=== PATIENT | male | born 1980 | race Caucasian/White ===

== ENCOUNTER 2016-12-27 16:12 | Emergency (ER) | payer SELFPAY ==
[2016-12-27 16:12] VITALS: BMI 34.3
[2016-12-27 16:17] VITALS: TEMP 98.3
[2016-12-27] MEDS ORDERED: Sodium Chloride 0.9% 1,000 ML IV STA (17:01)
[2016-12-27] MEDS ORDERED: DiphenhydrAMINE 50 mg/ml Inj IVP STA (17:01)
--- NOTE | 2016-12-27 17:25 | ED PDOC ---
HPI: General Adult Time Seen by Provider: 12/27/16 16:18 Chief Complaint (Nursing): Dizziness/Lightheaded History Per: Patient Additional Complaint(s): Pt. when he woke up this morning he felt very dizzy. Pt. describes dizziness as the room spinning. States symptoms have improved since the onset but is still present. Also states that when he closes his eyes the dizziness becomes worse. Denies pain, headache, head injury, LOC, N/V, fever. Also reports feeling burning in his epigastric area. Denies diarrhea, chest pain, SOB, palpitations. Past Medical History Reviewed: Historical Data, Nursing Documentation, Vital Signs Vital Signs: Last Vital Signs Temp 98.3 F 12/27/16 16:14 Pulse 75 12/27/16 17:28 Resp 20 12/27/16 16:14 BP 145/56 L 12/27/16 16:14 Pulse Ox 98 12/27/16 17:28 - Family History Family History: States: Unknown Family Hx - Home Medications Home Medications: Ambulatory Orders Medication Instructions Recorded Naproxen [Naprosyn] 500 mg PO Q12H #20 tab 03/29/16 Meclizine [Meclizine*] 1 - 2 tab PO Q6 PRN #30 tab 12/27/16 - Allergies Allergies/Adverse Reactions: Allergies Allergy/AdvReac Type Severity Reaction Status Date / Time No Known Allergies Allergy Verified 12/27/16 17:10 Review of Systems ROS Statement: Except As Marked, All Systems Reviewed And Found Negative Neurological: Positive for: Dizziness Physical Exam - Reviewed Nursing Documentation Reviewed: Yes Vital Signs Reviewed: Yes - Physical Exam Appears: Positive for: Well, Non-toxic, No Acute Distress Head Exam: Positive for: ATRAUMATIC, NORMAL INSPECTION, NORMOCEPHALIC Skin: Positive for: Normal Color, Warm. Negative for: Rash Eye Exam: Positive for: Normal appearance, EOMI, PERRL. Negative for: Nystagmus ENT: Positive for: Normal ENT Inspection Neck: Positive for: Normal, Painless ROM Cardiovascular/Chest: Positive for: Regular Rate, Rhythm Respiratory: Positive for: CNT, Normal Breath Sounds Gastrointestinal/Abdominal: Positive for: Normal Exam, Bowel Sounds, Soft. Negative for: Tenderness Back: Positive for: Normal Inspection Extremity: Positive for: Normal ROM Neurologic/Psych: Positive for: Alert, Oriented, Gait (steady, unassisted). Negative for: Aphasia, Facial Droop - Laboratory Results Result Diagrams: 12/27/16 17:27 12/27/16 17:27 - ECG ECG: Positive for: Interpreted By Me ECG Rhythm: Positive for: Sinus Rhythm. Negative for: ST/T Changes Rate: 75 O2 Sat by Pulse Oximetry: 98 - Progress ED Course And Treament: Labs ordered. CT head w/o contrast ordered. IV NS bolus x 1 given. Benadryl 50mg IV, pepcid 20mg IV given. 1905 CT head w/o contrast: negative. On re-evaluation, pt. reports good relief of dizziness and abdominal pain. Repeat neuro exam is non-focal. Abd remains soft and non-tender to deep palpation. Gait steady unassisted. Disposition - Clinical Impression Clinical Impression: Dizziness - Patient ED Disposition Is Patient to be Admitted: No - Disposition Referrals: [facility] [Outside] [facility] [Outside] Disposition: Routine/Home Disposition Time: 19:07 Condition: IMPROVED Prescriptions: Meclizine [Meclizine*] 1 - 2 tab PO Q6 PRN #30 tab PRN Reason: Dizziness Instructions: Benign Paroxysmal Positional Vertigo (ED) Forms: [facility] (Urdu)
[2016-12-27 17:38] LABS: BASO # 0.1 K/uL (0.0-0.2); BASO % 0.9 % (0.0-2.0); EOS # 0.3 K/uL (0.0-0.7); EOS % 2.5 % (0.0-4.0); HEMOGLOBIN 14.8 g/dL (12.0-18.0); LYMPH # 3.8 K/uL (1.0-4.3); LYMPH % 28.5 % (20.0-40.0); MEAN CELL VOLUME 88.4 fl (80.0-94.0); MEAN CORPUSCULAR HEMOGLOBIN 29.2 pg (27.0-31.0); MEAN CORPUSCULAR HGB CONC 33.1 g/dL (33.0-37.0); MEAN PLATELET VOLUME 9.5 fl (7.2-11.7); MONO # 1.2 K/uL (0.0-0.8); NEUT # 7.9 K/uL (1.8-7.0); NEUT % 59.1 % (50.0-75.0); NRBC % 0.1 % (0.0-0.0); RBC 5.05 Mil/uL (4.40-5.90); RED CELL DISTRIBUTION WIDTH 13.2 % (11.5-14.5); WHITE BLOOD COUNT 13.4 K/uL (4.8-10.8)
[2016-12-27 17:58] LABS: ALB/GLOB RATIO 1.4 (1.0-2.1); ALBUMIN 4.6 g/dL (3.5-5.0); ALT/SGPT 59 U/L (21-72); AST/SGOT 34 U/L (17-59); BLOOD UREA NITROGEN 11 mg/dl (9-20); GFR AFRICAN-AMERICAN > 60; GFR NON-AFRICAN AMERICAN > 60; LIPASE 62 U/L (23-300)
[2016-12-27 19:43] VITALS: BP 139/60; PULSE 72; RESP 18; O2SAT 100
--- NOTE | 2016-12-27 19:58 | CT ---
PROCEDURE: CT HEAD WITHOUT CONTRAST. HISTORY: dizziness COMPARISON: None available. TECHNIQUE: Axial computed tomography images were obtained through the head/brain without intravenous contrast. Radiation dose: Total exam DLP = 1170 mGy-cm. This CT exam was performed using one or more of the following dose reduction techniques: Automated exposure control, adjustment of the mA and/or kV according to patient size, and/or use of iterative reconstruction technique. FINDINGS: HEMORRHAGE: No intracranial hemorrhage. BRAIN: No mass effect or edema. No atrophy or chronic microvascular ischemic changes. VENTRICLES: Unremarkable. No hydrocephalus. CALVARIUM: Unremarkable. PARANASAL SINUSES: Unremarkable as visualized. No significant inflammatory changes. MASTOID AIR CELLS: Unremarkable as visualized. No inflammatory changes. OTHER FINDINGS: None. IMPRESSION: Normal CT of the Head.
--- NOTE | 2016-12-28 09:44 | CARD ---
APPROVED REPORT EKG Measurement Heart [id number] <Conclusion> Normal sinus rhythm Normal ECG
== END 2016-12-27 19:42 | disposition home or self-care (01) ==
LOC: H.ER 16:12
DX: R42 Dizziness and giddiness (principal)

== ENCOUNTER 2017-12-13 13:18 | Emergency (ER) | payer SELFPAY ==
[2017-12-13 13:34] VITALS: RESP 16; TEMP 98.4; O2SAT 98
[2017-12-13 13:35] VITALS: BMI 35.3
--- NOTE | 2017-12-13 14:53 | ED PDOC ---
HPI: General Adult Time Seen by Provider: 12/13/17 13:39 Chief Complaint (Nursing): Chest Pain Chief Complaint (Provider): Rib Pain History Per: Patient History/Exam Limitations: no limitations Onset/Duration Of Symptoms: Days Current Symptoms Are (Timing): Still Present Additional Complaint(s): Tereso Gallegos is a 37 year old male with no past medical history who is presenting to the ED for evaluation of left lower rib pain onset 3 days ago. Patient reports that the pain is worsened with movement and sitting upright. He denies taking any medications prior to arrival and denies any chest pain or shortness of breath. Patient reports no trauma or fall and offers no other medical complaints. PMD: none provided Past Medical History Reviewed: Historical Data, Nursing Documentation, Vital Signs Vital Signs: Last Vital Signs Temp 98.4 F 12/13/17 21:18 Pulse 73 12/13/17 21:18 Resp 16 12/13/17 21:18 BP 146/90 12/13/17 21:18 Pulse Ox 98 12/13/17 21:18 - Medical History PMH: No Chronic Diseases - Surgical History Surgical History: No Surg Hx - Family History Family History: States: Unknown Family Hx - Social History Current smoker - smoking cessation education provided: No Alcohol: Social Drugs: Denies - Home Medications Home Medications: Ambulatory Orders Medication Instructions Recorded Naproxen [Naprosyn] 500 mg PO Q12H #20 tab 03/29/16 Meclizine [Meclizine*] 1 - 2 tab PO Q6 PRN #30 tab 12/27/16 Naproxen [Naprosyn] 500 mg PO BID PRN #15 tablet 12/13/17 - Allergies Allergies/Adverse Reactions: Allergies Allergy/AdvReac Type Severity Reaction Status Date / Time No Known Allergies Allergy Verified 12/13/17 13:46 Review of Systems ROS Statement: Except As Marked, All Systems Reviewed And Found Negative Cardiovascular: Negative for: Chest Pain Respiratory: Negative for: Shortness of Breath Musculoskeletal: Positive for: Other (left lower rib pain) Physical Exam - Reviewed Nursing Documentation Reviewed: Yes Vital Signs Reviewed: Yes - Physical Exam Appears: Positive for: Non-toxic, In Acute Distress (mild painful) Head Exam: Positive for: ATRAUMATIC, NORMAL INSPECTION, NORMOCEPHALIC Skin: Positive for: Normal Color, Warm, DRY Eye Exam: Positive for: EOMI, Normal appearance, PERRL ENT: Positive for: Normal ENT Inspection Neck: Positive for: Normal, Painless ROM Cardiovascular/Chest: Positive for: Regular Rate, Rhythm. Negative for: Murmur Respiratory: Positive for: Normal Breath Sounds. Negative for: Respiratory Distress Gastrointestinal/Abdominal: Positive for: Normal Exam, Soft, Other (left lower anterior rib tenderness, no crepitus, no point tenderness, no erythema no edema ). Negative for: Tenderness, Distended, Guarding, Rebound Back: Positive for: Normal Inspection. Negative for: L CVA Tenderness, R CVA Tenderness, Vertebral Tenderness Extremity: Positive for: Normal ROM. Negative for: Deformity, Swelling Neurologic/Psych: Positive for: Alert, Oriented. Negative for: Motor/Sensory Deficits - Laboratory Results Result Diagrams: 12/13/17 17:07 12/13/17 17:07 - ECG O2 Sat by Pulse Oximetry: 98 (RA) Pulse Ox Interpretation: Normal Medical Decision Making Medical Decision Making: Time: 14:45 Impression: Rib Pain Plan: --X-Ray Left Ribs and Chest --Motrin Tab 600 mg PO Scribe Attestation: Documented by Misti Kiser, acting as a scribe for Arpita Canada MD. Provider Scribe Attestation: All medical record entries made by the Scribe were at my direction and personally dictated by me. I have reviewed the chart and agree that the record accurately reflects my personal performance of the history, physical exam, medical decision making, and the department course for this patient. I have also personally directed, reviewed, and agree with the discharge instructions and disposition. Disposition - Clinical Impression Clinical Impression: Rib fracture, Hepatic lesion, Elevated liver enzymes - Patient ED Disposition Is Patient to be Admitted: No - Disposition Referrals: [facility] [Outside] - 12/15/17 [facility] [Outside] - 12/15/17 Lamin Strange MD [Staff Provider] - 12/14/17 Disposition: Routine/Home Disposition Time: 16:17 Condition: STABLE Additional Instructions: Return if not better in 3 days. See the specialist or primary care doctor for follow up of your liver enzymes and liver lesion in 3 days. Devuelve si no mejor en 3 thomson. Consulte al especialista o mdico de atencin primaria para el seguimiento de las enzimas hepticas y la lesin heptica en 3 thomson. Prescriptions: Naproxen [Naprosyn] 500 mg PO BID PRN #15 tablet PRN Reason: Pain, Moderate (4-7) Instructions: Rib Fractures in Adults Forms: [facility] (Bengali) Print Language: YAKUT
--- NOTE | 2017-12-13 15:41 | RAD ---
Date of service: 12/13/2017 PROCEDURE: Radiographs of the Chest and Left Ribs. HISTORY: L anterior rib pain COMPARISON: Chest radiograph dated 09/29/2017. TECHNIQUE: Frontal radiograph of the chest and multiple oblique radiographs of the left ribs were obtained. FINDINGS: LEFT RIBS: Questionable nondisplaced fracture of the left anterolateral 4th rib, appreciated on only one view. LUNGS: Clear. PLEURA: No pneumothorax or pleural fluid. CARDIOVASCULAR: Normal sized heart. No pulmonary vascular congestion. OTHER FINDINGS: None. IMPRESSION: Questionable nondisplaced fracture of the left anterolateral 4th rib. Clinical correlation is recommended.
[2017-12-13] MEDS ORDERED: Iohexol 300 100 ML IJ ONE (16:43)
[2017-12-13 17:11] LABS: BASO # 0.1 K/uL (0.0-0.2); BASO % 1.1 % (0.0-2.0); EOS # 0.4 K/uL (0.0-0.7); HEMOGLOBIN 15.1 g/dL (12.0-18.0); LYMPH # 3.5 K/uL (1.0-4.3); MEAN CELL VOLUME 89.3 fl (80.0-94.0); MEAN CORPUSCULAR HEMOGLOBIN 30.1 pg (27.0-31.0); MEAN CORPUSCULAR HGB CONC 33.7 g/dL (33.0-37.0); MEAN PLATELET VOLUME 9.1 fl (7.2-11.7); MONO # 0.9 K/uL (0.0-0.8); MONO % 7.4 % (0.0-10.0); NEUT # 7.6 K/uL (1.8-7.0); NEUT % 60.5 % (50.0-75.0); NRBC % 0.1 % (0.0-0.0); RBC 5.01 Mil/uL (4.40-5.90); RED CELL DISTRIBUTION WIDTH 13.5 % (11.5-14.5); WHITE BLOOD COUNT 12.6 K/uL (4.8-10.8)
[2017-12-13 17:26] LABS: ALB/GLOB RATIO 1.4 (1.0-2.1); ALBUMIN 4.5 g/dL (3.5-5.0); ALT/SGPT 67 U/L (21-72); AST/SGOT 71 U/L (17-59); BLOOD UREA NITROGEN 13 mg/dl (9-20); CALCIUM 9.1 mg/dL (8.4-10.2); GFR NON-AFRICAN AMERICAN > 60; LIPASE 39 U/L (23-300)
[2017-12-13 17:57] LABS: INR 1.1 (0.9-1.2); PARTIAL THROMBOPLASTIN TIME 35.5 Seconds (25.6-37.1); PROTHROMBIN TIME 11.7 Seconds (9.8-13.1)
--- NOTE | 2017-12-13 19:12 | ED PDOC ---
- Laboratory Results Result Diagrams: 12/13/17 17:07 12/13/17 17:07 Interpretation Of Abn Labs: no acute - ECG O2 Sat by Pulse Oximetry: 98 (RA) Pulse Ox Interpretation: Normal - Radiology X-Ray: Read By Radiologist X-Ray Interpretation: Fracture (L 4th rib) - CT Scan/US ct Other Rad Studies (CT/US): Read By Radiologist Other Rad Interpretation: hepatic lesion - Progress ED Course And Treament: 1899: Took over care from Dr. Canada. Fu on CT and labs. LUQ abd pain. 2037: Stable. Pain controlled. Fu with pcp. Made aware of lesion on liver and rib fx. AAOx3. Tolerated PO. Disposition - Clinical Impression Clinical Impression: Rib fracture, Hepatic lesion, Elevated liver enzymes - POA Present On Arrival: None - Disposition Referrals: [facility] [Outside] - 12/15/17 [facility] [Outside] - 12/15/17 Lamin Strange MD [Staff Provider] - 12/14/17 Disposition: Routine/Home Disposition Time: 20:50 Condition: STABLE Additional Instructions: Return if not better in 3 days. See the specialist or primary care doctor for follow up of your liver enzymes and liver lesion in 3 days. Devuelve si no mejor en 3 thomson. Consulte al especialista o mdico de atencin primaria para el seguimiento de las enzimas hepticas y la lesin heptica en 3 thomson. Prescriptions: Naproxen [Naprosyn] 500 mg PO BID PRN #15 tablet PRN Reason: Pain, Moderate (4-7) Instructions: Rib Fractures in Adults Forms: [facility] (Khmer) Print Language: LITHUANIAN
[2017-12-13 21:19] VITALS: BP 146/90; PULSE 73
--- NOTE | 2017-12-14 10:08 | CT ---
Date of service: 12/13/2017 PROCEDURE: CT Abdomen and Pelvis with contrast HISTORY: LUQ pain COMPARISON: None. TECHNIQUE: Contrast dose: Omnipaque 300, 95 cc Radiation dose: Total exam DLP = 832.21 mGy-cm. This CT exam was performed using one or more of the following dose reduction techniques: Automated exposure control, adjustment of the mA and/or kV according to patient size, and/or use of iterative reconstruction technique. FINDINGS: LOWER THORAX: Unremarkable. LIVER: There is marked lucencies scattered throughout the hepatic parenchyma diffusely, compatible with gross hepatic steatosis. The hepatic parenchyma is otherwise unremarkable appearing. Questionable focal fatty sparing or a small enhancing nodule right lobe liver inferiorly (image 72 series 3 close). GALLBLADDER AND BILE DUCTS: Unremarkable. PANCREAS: Unremarkable. No gross lesion or ductal dilatation. SPLEEN: Unremarkable. ADRENALS: Unremarkable. No mass. KIDNEYS AND URETERS: Unremarkable. No hydronephrosis. No solid mass. VASCULATURE: Unremarkable. No aortic aneurysm. BOWEL: Unremarkable. No obstruction. No gross mural thickening. APPENDIX: Normal appendix. PERITONEUM: Unremarkable. No free fluid. No free air. LYMPH NODES: Unremarkable. No enlarged lymph nodes. BLADDER: Unremarkable. REPRODUCTIVE: Unremarkable. BONES: No acute fracture. OTHER FINDINGS: None. IMPRESSION: No definite acute abdominal or pelvic findings. Gross hepatic steatosis appreciable. Potential focal fatty sparing or enhancing nodule right lower lobe liver as discussed above. Follow-up MRI recommended prior to and following intravenous gadolinium administration including multiple, time dependent enhanced series. Concordant preliminary report from [facility], 12/13/2017.
== END 2017-12-13 21:17 | disposition home or self-care (01) ==
LOC: H.ER 13:18
DX: S22.42XA Multiple fractures of ribs, left side, initial encounter for closed fracture (principal); Y92.89 Other specified places as the place of occurrence of the external cause
CPT/HCPCS: 71101; 74177; 80053; 83690; 85025; 85610; 85730; 99284; J2270; Q9967